=== PATIENT | male | born 1980 | race Caucasian/White ===

== ENCOUNTER 2017-11-23 18:37 | Emergency (ER) | payer BC, OTHER ==
[~2017-11-23] VITALS: Ht 180.3 cm; Wt 102.8 kg
[2017-11-23 18:39] VITALS: Ht 180.3 cm; Wt 102.8 kg
[2017-11-23] MEDS ORDERED: EPINEPHRINE ADULT AUTO-INJECT 0.3 MG SYR IM STA (18:47)
[2017-11-23] MEDS ORDERED: EPP3/2 IM (19:07)
[2017-11-23] MEDS ORDERED: PRED50TA PO (19:07)
[2017-11-23 19:09] VITALS: BP 138/91; PULSE 82; TEMP 36.9; O2SAT 96
--- NOTE | 2017-11-23 20:32 | EMERGENCY ROOM VISIT NOTE ---
History Report prepared by Skip: Santiago Ponce Under the Supervision of: Dr. Rohan Jay M.D. First contact with patient: 18:42 Chief Complaint: ALLERGIC REACTION Stated Complaint: BEE STING, POSSIBLE ALLERGIC History of Present Illness The patient is a 37 year old male who presents to the Emergency Room with complaints of a sudden allergic reaction that occurred around 30 minutes ago. He states that he was stung by a bee on his right elbow, and ever since then, the area has been painful to the touch. The patient notes that he has no other rashes or stinging other than on the right elbow. He says that he used to be severely allergic to bees when he was younger, and his heart rate and blood pressure would go up, but he never had breathing issues with his allergic reactions. Pt denies LOC, headache, fevers, chills, diaphoresis, visual changes , neck pain, chest pain, breathing difficulties, nausea, vomiting, abdominal pain, back pain, melena, hematochezia, urinary symptoms, numbness, weakness, lymphadenopathy, or other complaints. Source of History: patient Onset: 30 minutes ago Position: elbow (right) Symptom Intensity: area painful to touch Quality: other (allergic reaction) Timing: other (sudden) Associated Symptoms: + rash Note: No other associated symptoms noted. Review of Systems See HPI for pertinent positives and negatives. A total of ten systems were reviewed and were otherwise negative. Past Medical & Surgical Medical Problems: (1) Allergy to bee sting Family History FHx: back pain Social History Smoking Status: Former Smoker Drug Use: none Marital Status: Housing Status: lives with family Occupation Status: employed Current/Historical Medications Scheduled Epinephrine (Epipen), 0.3 MG IM UD Prednisone (Prednisone), 50 MG PO DAILY Allergies Coded Allergies: BEE STING (Unverified Allergy, Mild, 11/08/14) Physical Exam Vital Signs Date Time Temp Pulse Resp B/P (MAP) Pulse Ox O2 Delivery O2 Flow Rate FiO2 11/23/17 19:09 36.9 82 20 138/91 96 11/23/17 18:39 36.9 82 20 138/91 96 Room Air Physical Exam GENERAL: Awake, alert, well-appearing, in no distress HENT: Normocephalic, atraumatic. Oropharynx unremarkable. EYES: Normal conjunctiva. Sclera non-icteric. NECK: Supple. No nuchal rigidity. FROM. No masses. RESPIRATORY: Clear to auscultation. No wheezes. No rales. Normal respiratory effort. CARDIAC: Normal rate. Normal rhythm. No murmurs. No rubs. Extremities warm and well perfused. Pulses equal. No JVD. GI: Soft, non-distended. No tenderness to palpation. No rebound or guarding. No masses. RECTAL: Deferred. MUSCULOSKELETAL: Erythematous patch and mild swelling to the right elbow, no stinger present. Chest examination reveals no tenderness. The back is symmetrical on inspection without obvious abnormality. There is no CVA tenderness to palpation. LOWER EXTREMITIES: Calves are equal size bilaterally and non-tender. No edema. No discoloration. NEURO: Normal sensorium. No sensory or motor deficits noted. SKIN: Erythematous patch and mild swelling to the right elbow, no stinger present. Medical Decision & Procedures Medications Administered Medications (Trade) Dose Ordered Sig/Myles Route Start Time Stop Time Status Last Admin Dose Admin Prednisone (PredniSONE TAB) 60 mg NOW STAT PO 11/23/17 18:47 11/23/17 18:50 DC 11/23/17 18:58 60 MG Diphenhydramine HCl (Benadryl Cap) 50 mg NOW ONCE PO 11/23/17 19:00 11/23/17 19:01 DC 11/23/17 19:00 50 MG ED Course 1842: The patient was evaluated in room D3B. A complete history and physical exam was performed. Discussed results and discharge instructions: he verbalized understanding and agreement. The patient will be discharged. 1846: Epipen 0.3 mg IM, Prednisone Tab 60 mg PO. 1899: Benadryl Cap 50 mg PO. Medical Decision Triage Nursing notes reviewed and agree them. The patient's history was concerning for possible allergic reaction. Differential diagnosis: Etiologies such as hymenopteran information, allergic reaction, anaphylaxis, urticaria, cellulitis, as well as others were entertained. Physical examination: As above. ER treatment provided: Benadryl 50 mg PO Prednisone 60mg PO It appears the patient had a minor reaction. He does not have an EpiPen active. He was given 1 prior to being discharged as his pharmacy is closing. A prescription was sent for additional. He will follow-up with his primary. By the evaluation outlined above emergent etiologies such as airway compromise, Knox-Jacob syndrome, toxic epidermal necrolysis, erythema multiforme, cellulitis, as well as others were deemed relatively unlikely. The patient was informed about the findings as listed above. All questions were answered and he was pleased with the treatment. Return instructions were outlined and the patient was discharged in stable condition. Outpatient prescription management: EpiPen Referral: The patient was referred back to his primary care physician for follow-up in 2- 3 days for a recheck of the current condition. Medication Reconcilliation Current Medication List: was personally reviewed by me Blood Pressure Screening Patient's blood pressure: Elevated blood pressure Blood pressure disposition: Elevated BP felt to be situational Impression Primary Impression: Bee sting Additional Impression: History of bee sting allergy Scribe Attestation The scribe's documentation has been prepared under my direction and personally reviewed by me in its entirety. I confirm that the note above accurately reflects all work, treatment, procedures, and medical decision making performed by me. Departure Information Dispostion Home / Self-Care Prescriptions Epinephrine (EPIPEN) 0.3 Mg/0.3 Ml Inj 0.3 MG IM UD, #1 BOX 1 Refill Prov: Rohan Jay MD 11/23/17 Prednisone (Prednisone) 50 Mg Tab 50 MG PO DAILY for 3 Days, #3 TAB Prov: Rohan Jay MD 11/23/17 Referrals No Doctor, Assigned (PCP) Patient Instructions My [facility] Additional Instructions ALLERGIC REACTION INSTRUCTIONS: DO NOT drive, drink alcohol, operate machinery, or perform dangerous activities today. You were given medications in the ER that can affect your ability to safely function or operate a vehicle. Epi-Pen: Use one injection as instructed for severe allergic reactions associated with shortness of breath, difficulty breathing, or throat or tongue swelling. If you use this injection call 911 or proceed immediately to the nearest Emergency Room. Prednisone 50mg: Once daily until the prescription is finished. It is best to take this earlier in the day as some patients note occasional difficulty falling asleep when taken in the late evening. Diphenhydramine(Benadryl) 25mg: use 25 to 50 mg every six hours for swelling, itching, or hives. This medication is sedating and will cause drowsiness. Avoid alcohol, operating machinery or dangerous equipment, working on ladders or roofs, DRIVING, or situations where being under the influence may be dangerous. Zantac 75: Take two pills twice a day along with Benadryl as needed for swelling , itching, or hives. Most people know this for its affect on the stomach, but it also acts similar to, but less potent than Benadryl for allergic reactions. Both the Benadryl and the Zantac are available [id number]. Continue current medications. Return to the emergency department for worsening of your rash, swelling of your face, lips, tongue, or throat, difficulty breathing, vomiting, or as needed. Follow-up with your primary care physician in 2 to 3 days for a recheck of your current condition. Problem Qualifiers
== END 2017-11-23 19:10 | disposition home or self-care (01) ==
LOC: C.EDB 18:38 → C.EDD 19:10
DX: S50.361A Insect bite (nonvenomous) of right elbow, initial encounter (principal); W57.XXXA Bitten or stung by nonvenomous insect and other nonvenomous arthropods, initial encounter; Z91.030 Bee allergy status